=== PATIENT | male | born 1990 | race American Indian/Alaskan Native ===

== ENCOUNTER 2018-03-16 19:33 | Emergency (ER) | payer SELFPAY ==
[2018-03-16 20:06] VITALS: BP 156/107
--- NOTE | 2018-03-16 22:08 | Emergency Department Report ---
- General Chief Complaint: Laceration/Recheck/Suture Stated Complaint: SUTURE REMOVAL LT THUMB Time Seen by Provider: 03/16/18 22:01 Source: patient Mode of arrival: Ambulatory Limitations: No Limitations - History of Present Illness Initial Comments: Patient is a 27-year-old Afro-[place] male who presents for suture removal sutures placed 10 days ago patient denies any complications since procedure however at time of patient states to painful patient advised to return in 5 days for suture removal there is no swelling no erythema and no discharge no fever no symptoms of infection Onset/Timin -: days(s) Extremity Location: Left: Hand (medial thumb sutures x 6 ) Place: home Patient Tetanus UTD: Yes Context: accidental Associated Symptoms: pain - Related Data Previous Rx's Medication Instructions Recorded Last Taken Type Acetaminophen with Codeine 1 each PO Q6H PRN #12 tablet 03/06/18 Unknown Rx [Tylenol with Codeine #3 Tablet] Sulfamethoxazole/Trimethoprim 1 each PO BID #14 tablet 03/06/18 Unknown Rx [Bactrim DS TAB] Ibuprofen 800 mg PO TID PRN #30 tablet 03/16/18 Unknown Rx cephALEXin [Keflex] 500 mg PO Q6HR #40 capsule 03/16/18 Unknown Rx Allergies Allergy/AdvReac Type Severity Reaction Status Date / Time No Known Allergies Allergy Unverified 03/06/18 01:41 ED Review of Systems ROS: Stated complaint: SUTURE REMOVAL LT THUMB Other details as noted in HPI Constitutional: denies: chills, fever Eyes: denies: eye pain, eye discharge, vision change ENT: denies: ear pain, throat pain Respiratory: denies: cough, shortness of breath, wheezing Cardiovascular: denies: chest pain, palpitations Endocrine: no symptoms reported Gastrointestinal: denies: abdominal pain, nausea, diarrhea Genitourinary: denies: urgency, dysuria Musculoskeletal: denies: back pain, joint swelling, arthralgia Skin: denies: rash, lesions Neurological: denies: headache, weakness, paresthesias Psychiatric: denies: anxiety, depression Hematological/Lymphatic: denies: easy bleeding, easy bruising ED Past Medical Hx - Past Medical History Previous Medical History?: No - Surgical History Past Surgical History?: No - Social History Smoking Status: Never Smoker Substance Use Type: Alcohol - Medications Home Medications: Home Medications Medication Instructions Recorded Confirmed Last Taken Type Acetaminophen with Codeine 1 each PO Q6H PRN #12 tablet 03/06/18 Unknown Rx [Tylenol with Codeine #3 Tablet] Sulfamethoxazole/Trimethoprim 1 each PO BID #14 tablet 03/06/18 Unknown Rx [Bactrim DS TAB] Ibuprofen 800 mg PO TID PRN #30 tablet 03/16/18 Unknown Rx cephALEXin [Keflex] 500 mg PO Q6HR #40 capsule 03/16/18 Unknown Rx ED Physical Exam - General Limitations: No Limitations General appearance: alert, in no apparent distress - Head Head exam: Present: atraumatic, normocephalic - Eye Eye exam: Present: normal appearance - ENT ENT exam: Present: mucous membranes moist - Neck Neck exam: Present: normal inspection - Respiratory Respiratory exam: Present: normal lung sounds bilaterally. Absent: respiratory distress - Cardiovascular Cardiovascular Exam: Present: regular rate, normal rhythm. Absent: systolic murmur, diastolic murmur, rubs, gallop - GI/Abdominal GI/Abdominal exam: Present: soft, normal bowel sounds - Rectal Rectal exam: Present: deferred - Extremities Exam Extremities exam: Present: other (sutures left thumb intact no erythema no discharge edges well approximated ) - Back Exam Back exam: Present: normal inspection - Neurological Exam Neurological exam: Present: alert, oriented X3 - Psychiatric Psychiatric exam: Present: normal affect, normal mood - Skin Skin exam: Present: warm, dry, intact, normal color. Absent: rash ED Course Vital Signs 03/16/18 20:02 Temperature 98.2 F Pulse Rate 107 H Respiratory 18 Rate Blood Pressure 156/107 O2 Sat by Pulse 97 Oximetry ED Medical Decision Making - Medical Decision Making Attempt is suture removal patient states to clinical there is no erythema no swelling no discharge is a well approximated extremity not hot to touch plan Keflex and says 5 days patient will return for suture removal or follow with PCP as [facility], pt verbalized agreement and understanding of same. Critical care attestation.: If time is entered above; I have spent that time in minutes in the direct care of this critically ill patient, excluding procedure time. ED Disposition Clinical Impression: Visit for wound check Disposition: DC-01 TO HOME OR SELFCARE Is pt being admited?: No Does the pt Need Aspirin: No Condition: Stable Instructions: Suture Care (ED), Laceration (ED) Prescriptions: cephALEXin [Keflex] 500 mg PO Q6HR #40 capsule Ibuprofen 800 mg PO TID PRN #30 tablet PRN Reason: pain Referrals: PRIMARY CARE, [Primary Care Provider] - 3-5 Days Forms: Work/School Release Form(ED) Time of Disposition: 22:11
== END 2018-03-16 22:20 | disposition home or self-care (01) ==
LOC: ED 19:33
DX: Z04.89 Encounter for examination and observation for other specified reasons (principal); S61.011D Laceration without foreign body of right thumb without damage to nail, subsequent encounter